=== PATIENT | male | born 1990 | race Caucasian/White ===

== ENCOUNTER 2020-08-17 16:56 | Emergency (ER) | payer MEDICARE, MEDICAID ==
--- NOTE | 2020-08-17 17:39 | EDM.PDOC ---
ED HPI GENERAL MEDICAL PROBLEM - General Chief Complaint: General Stated Complaint: TROUBLE TALKING/JAW PAIN Time Seen by Provider: 08/17/20 17:15 Source of Information: Reports: Patient History Limitations: Reports: No Limitations - History of Present Illness INITIAL COMMENTS - FREE TEXT/NARRATIVE: 30-year-old male presents to the emergency department with complaints of pain to his left jaw, left sided tongue swelling with inability to clear food or secretions from his left cheek and under the left side of his tongue. Patient states area has become progressively more painful. States that this has been going on for about a week. He does have some submandibular swelling of the lymph nodes on the left side. Denies fever chills or recent cough. Onset: Gradual - Related Data Allergies Allergy/AdvReac Type Severity Reaction Status Date / Time Penicillins Allergy Cannot Verified 08/17/20 17:13 Remember Home Meds: Home Meds Cefdinir [Omnicef] 300 mg PO BID #16 cap 08/17/20 [Rx] Cholecalciferol (Vitamin D3) [Vitamin D] 5,000 mg PO DAILY 08/17/20 [History] Fexofenadine HCl [Cristin Allergy] 60 mg PO DAILY 08/17/20 [History] Multivitamin [Multi-Vitamin Daily] 1 tab PO DAILY 08/17/20 [History] Past Medical History Neurological History: Reports: Head Trauma - Past Surgical History Cardiovascular Surgical History: Reports: Other (See Below) Other Cardiovascular Surgeries/Procedures: "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 Denies: Fever, Chills, Decreased Appetite HEENT: Reports: Other (Painful swelling of the tongue on the left side.) Respiratory: Reports: No Symptoms Cardiovascular: Reports: No Symptoms Endocrine: Reports: No Symptoms GI/Abdominal: Reports: No Symptoms : Reports: No Symptoms Musculoskeletal: Reports: No Symptoms Skin: Reports: No Symptoms Neurological: Reports: No Symptoms Psychiatric: Reports: No Symptoms Hematologic/Lymphatic: Reports: No Symptoms Immunologic: Reports: No Symptoms ED EXAM, GENERAL - Physical Exam Exam: See Below Exam Limited By: No Limitations General Appearance: Alert, WD/WN, No Apparent Distress Eye Exam: Bilateral Eye: PERRL Ears: Hearing Grossly Normal Nose: Normal Inspection Throat/Mouth: Other (Small mass felt on left lateral dorsum of tongue: Area is painful with palpation. Swelling noted to left submandibular lymph node) Head: Atraumatic, Normocephalic Neck: Normal Inspection, Supple, Non-Tender, Full Range of Motion Respiratory/Chest: No Respiratory Distress, Lungs Clear, Normal Breath Sounds, No Accessory Muscle Use, Chest Non-Tender Cardiovascular: Normal Peripheral Pulses, Regular Rate, Rhythm, No Edema, No Gallop, No Murmur GI/Abdominal: Normal Bowel Sounds, Soft, Non-Tender, No Distention (Male) Exam: Deferred Rectal (Males) Exam: Deferred Back Exam: Normal Inspection, Full Range of Motion Extremities: Normal Inspection, Normal Range of Motion, Non-Tender, No Pedal Edema, Normal Capillary Refill Neurological: Alert, Oriented, Normal Cognition Psychiatric: Normal Affect, Normal Mood Skin Exam: Warm, Dry, Intact, Normal Color, No Rash Lymphatic: No Adenopathy Course - Vital Signs Text/Narrative:: 30-year-old male with a 1 week history of progressively increasing tenderness under left side of tongue. Patient states this is started about a week ago and he is unable to move his tongue to the left side to clear food from his left cheek or under the left side of his tongue. Patient states his speech has become much more slurred due to this. Upon assessment he does have swelling to the submandibular lymph nodes on the left side which are also painful with palpation. Small amount of swelling noted to the submandibular gland on the left side. Patient will be discharged home with a prescription of Omnicef 300 m g twice daily for 8 days. Can also take ibuprofen 600 mg for the discomfort every 6 hours. Last Recorded V/S: Last Vital Signs Temp 97.5 F 08/17/20 17:05 Pulse 98 08/17/20 17:05 Resp 20 08/17/20 17:05 BP 150/107 H 08/17/20 17:05 Pulse Ox 97 08/17/20 17:05 Departure - Departure Time of Disposition: 17:42 Disposition: Home, Self-Care 01 Condition: Good Clinical Impression: Sialadenitis - Discharge Information Prescriptions: Cefdinir [Omnicef] 300 mg PO BID #16 cap Referrals: Viri Lee MD [Primary Care Provider] - Forms: ED Department Discharge Additional Instructions: You were seen in the emergency department with complaints of pain to the left side of your tongue. Your assessment reveals that you have a plugged salivary gland. You were given a prescription for an antibiotic called Omnicef which she will take twice daily for 8 days. The pain and swelling will likely get better over the next 48 hours. You can take ibuprofen 600 mg every 6 hours as needed for pain and discomfort. Also recommended that you suck on hard smooth candy like where others or lifesavers to assist with the discomfort. Should your condition worsens or change please return to the emergency department Sepsis Event Note (ED) - Evaluation Sepsis Screening Result: No Definite Risk - Focused Exam Vital Signs: Vital Signs Temp Pulse Resp BP Pulse Ox 08/17/20 17:05 97.5 F 98 20 150/107 H 97
== END 2020-08-17 17:53 | disposition home or self-care (01) ==
LOC: JD.ED 16:56
DX: K11.20 Sialoadenitis, unspecified (principal); Z88.0 Allergy status to penicillin; Z87.891 Personal history of nicotine dependence
CPT/HCPCS: 99283

== ENCOUNTER 2024-04-06 12:29 | Emergency (ER) | payer MEDICARE, MEDICAID | END 2024-04-06 14:10 | disposition left against medical advice (07) | LOC: JD.ED 12:29 | DX: Z53.21 Procedure and treatment not carried out due to patient leaving prior to being seen by health care provider (principal) ==

== ENCOUNTER 2024-04-28 11:56 | Inpatient (IN) | payer MEDICARE, MEDICAID ==
[2024-04-28 12:36] LABS: BASOPHILS PERCENT AUTO 0.3 % (0.0-1.0); EOSINOPHILS ABSOLUTE AUTO 0.1 K/mm3 (0.0-0.4); HEMATOCRIT 46.9 % (42.0-52.0); HEMOGLOBIN 15.2 gm/dl (14.0-18.0); IMMATURE GRAN ABSOLUTE AUTO 0.02 K/mm3 (0.00-0.05); IMMATURE GRAN PERCENT AUTO 0.3 % (0.0-0.4); LYMPHOCYTES PERCENT AUTO 16.7 % (24.0-44.0); MEAN CORPUSCULAR HEMOGLOBIN 29.3 pg (28.0-32.0); MEAN CORPUSCULAR HGB CONC 32.4 g/dl (32.0-36.0); MEAN CORPUSCULAR VOLUME 90.5 fl (83.0-99.0); MEAN PLATELET VOLUME 10.8 fl (9.4-12.4); MONOCYTES ABSOLUTE AUTO 0.5 K/mm3 (0.0-0.8); MONOCYTES PERCENT AUTO 8.7 % (0.0-8.0); NEUTROPHILS ABSOLUTE AUTO 4.5 K/mm3 (1.8-7.7); PLATELET COUNT,PLT 211 K/mm3 (150-400); RED BLOOD CELL COUNT 5.18 M/mm3 (4.52-5.90); WHITE BLOOD CELL COUNT,WBC 6.21 K/mm3 (3.9-11.3)
[2024-04-28] MEDS: Iopamidol 612 MG/ML 100 ML Bottle IVPUSH ONE (12:47)
[2024-04-28 12:59] LABS: A/G RATIO 1.1 (1-2); ALBUMIN 3.6 g/dl (3.4-5.0); ANION GAP 11.9 (5-15); BILIRUBIN TOTAL 1.3 mg/dL (0.2-1.0); BUN/CREATININE RATIO 22.5 (14-18); C-REACTIVE PROTEIN 1.96 mg/dL (<0.30); CALCIUM 8.8 mg/dL (8.5-10.1); CREATININE 0.8 mg/dL (0.7-1.3); EST CRCL DRUG DOSING (CG) 118.52 mL/min; POTASSIUM,K 3.9 mEq/L (3.5-5.1)
[2024-04-28] MEDS: Ondansetron 4 MG/2 ML SDV IVPUSH ONE (12:59)
[2024-04-28] MEDS: Sodium Chloride 0.9% 1,000 ML IV STA (12:59)
[2024-04-28] MEDS: Sodium Chloride 0.9% 10 ML Syringe FLUSH PRN (13:00)
[2024-04-28] MEDS: Furosemide 40 MG/4 ML VIAL IVPUSH ONE (13:55)
[2024-04-28 14:24] LABS: CORONAVIRUS COVID-19 NAA NEGATIVE (NEGATIVE); INFLUENZA A NAA NEGATIVE (NEGATIVE); RESPIRATORY SYNCYTIAL VIR NAA NEGATIVE (NEGATIVE)
[2024-04-28] MEDS ORDERED: Acetaminophen 325 MG Tab PO PRN (15:31)
[2024-04-28 16:03] LABS: MAGNESIUM 1.7 mg/dL (1.8-2.4); TSH 2.416 uIU/mL (0.358-3.74)
[2024-04-28 18:24] LABS: BASE EXCESS ARTERIAL -1.7 (-2-2.0); BICARBONATE,ARTERIAL 23.3 meq/L (22.0-26.0); O2 SATURATION ARTERIAL 96.4 % (96.0-97.0); PCO2 ARTERIAL 42.6 mmHg (35.0-45.0)
[2024-04-28 20:54] LABS: APPEARANCE,URINE CLEAR (Clear); BILIRUBIN,URINE NEGATIVE (Negative); COLOR,URINE YELLOW (Yellow); GLUCOSE,URINE NEGATIVE (Negative); KETONES,URINE NEGATIVE (Negative); LEUKOCYTE ESTERASE,URINE NEGATIVE (Negative); NITRITE,URINE NEGATIVE (Negative); OCCULT BLOOD,URINE NEGATIVE (Negative); PROTEIN,URINE 1+ (Negative); UROBILINOGEN,URINE 0.2 (0.2-1.0)
[2024-04-28 21:29] LABS: BACTERIA,URINE RARE /hpf (FEW); EPITHELIAL CELLS,URINE 0-5 /hpf (0-5); MUCUS,URINE NOT SEEN /hpf (FEW); RBC,URINE 0-5 /hpf (0-5); WBC,URINE 0-5 /hpf (0-5)
[2024-04-29] MEDS: Furosemide 40 MG/4 ML VIAL IVPUSH ONE ×2 (00:17→09:20)
[2024-04-29 08:13] LABS: ALBUMIN 3.5 g/dl (3.4-5.0); ANION GAP 11.1 (5-15); CALCIUM 8.7 mg/dL (8.5-10.1); CREATININE 0.8 mg/dL (0.7-1.3); EST CRCL DRUG DOSING (CG) 118.52 mL/min; POTASSIUM,K 4.1 mEq/L (3.5-5.1); PROTEIN TOTAL,TP 6.9 g/dl (6.4-8.2)
[2024-04-29] MEDS: Enoxaparin 40 MG/0.4 ML Syringe SUBCUT SCH (09:02)
[2024-04-29] MEDS: Magnesium Sulfate/Water Premix 2 GM in Premix Bag 1 BAG IV ONE (11:50)
[2024-04-30 04:46] LABS: HEMATOCRIT 44.6 % (42.0-52.0); HEMOGLOBIN 14.1 gm/dl (14.0-18.0); MEAN CORPUSCULAR HEMOGLOBIN 28.9 pg (28.0-32.0); MEAN CORPUSCULAR HGB CONC 31.6 g/dl (32.0-36.0); MEAN CORPUSCULAR VOLUME 91.4 fl (83.0-99.0); MEAN PLATELET VOLUME 11.7 fl (9.4-12.4); PLATELET COUNT,PLT 181 K/mm3 (150-400); RED BLOOD CELL COUNT 4.88 M/mm3 (4.52-5.90); WHITE BLOOD CELL COUNT,WBC 6.51 K/mm3 (3.9-11.3)
[2024-04-30 05:30] LABS: ANION GAP 10.7 (5-15); CALCIUM 8.8 mg/dL (8.5-10.1); EST CRCL DRUG DOSING (CG) 94.81 mL/min; POTASSIUM,K 3.7 mEq/L (3.5-5.1)
[2024-04-30] MEDS: Potassium Chloride 20 MEQ Tab.ER PO SCH (09:01)
[2024-04-30] MEDS: Furosemide 40 MG/4 ML VIAL IVPUSH SCH (09:01)
[2024-04-30] MEDS: Empagliflozin 10 MG Tab PO SCH (09:11)
[2024-05-01 05:39] LABS: BUN/CREATININE RATIO 28.8 (14-18); CALCIUM 9.1 mg/dL (8.5-10.1); CREATININE 0.8 mg/dL (0.7-1.3); EST CRCL DRUG DOSING (CG) 118.52 mL/min
[2024-05-01] MEDS: Lisinopril 2.5 MG Tab PO SCH (08:04)
[2024-05-01] MEDS: Furosemide 40 MG/4 ML VIAL IVPUSH SCH (08:04)
== END 2024-05-01 18:26 | disposition home or self-care (01) | DRG 291 ==
LOC: JD.ED 11:56 → JD.MS 15:31
PROVIDERS: ADMIT Family Medicine; ATTEND Internal Medicine
PROC: 4A033R1 Measurement of Arterial Saturation, Peripheral, Percutaneous Approach (ICD-10-PCS; principal; 2024-04-28)
DX: I50.9 Heart failure, unspecified (principal); I50.23 Acute on chronic systolic (congestive) heart failure; J96.01 Acute respiratory failure with hypoxia; I27.20 Pulmonary hypertension, unspecified; Z88.0 Allergy status to penicillin; Z87.891 Personal history of nicotine dependence; Z79.899 Other long term (current) drug therapy
CPT/HCPCS: 0241U; 36415; 36600; 71046; 74177; 80048; 80053; 81001; 82803; 83735; 83880; 84443; 84484; 85025; 85027; 86140; 93005; 93306; 94760; 94761; A9270-GY; J1650; J1940; J2405; J3475; J3490; J7030; Q9967